=== PATIENT | female | born 1980 | race Caucasian/White ===

== ENCOUNTER 2016-08-20 07:08 | Emergency (ER) | payer SELFPAY ==
--- NOTE | 2016-08-20 07:30 | ED Physician Chart ---
Chief Complaint/HPI - Patient Information Date Seen:: 08/20/16 Time Seen:: 07:29 Chief Complaint:: HEROIN WITHDRAWL History of Present Illness:: This 35-year-old female was released from police custody because she had been vomiting. She was undergoing heroin withdrawal at the present time her main symptoms are nausea and vomiting. The last time she used heroin 1 was 2 days ago. Denies any abdominal pain or diarrhea. She is positive for both hepatitis B and hepatitis C. He denies any other medical problems. No back pain. Allergies:: Allergies Allergy/AdvReac Type Severity Reaction Status Date / Time No Known Allergies Allergy Verified 08/20/16 07:28 Review of Systems - Review of Systems General/Constitutional: No fever, No chills, No weight loss, No weakness, No edema Skin: No skin lesions, No bruising Head: No headache, No light-headedness Eyes: No loss of vision, No diplopia ENT: No earache, No sore throat Neck: No neck pain, No swelling, No mass noted GI: Nausea, Vomiting, No diarrhea, No pain, No hematemesis G/U: No dysuria, No frequency Chip Mixer: No abnormal vaginal bleed Musculoskeletal: No bone or joint pain, No back pain, No muscle pain Endocrine: No polyuria, No polydipsia Hematopoietic: No bruising, No lymphadenopathy Allergic/Immuno: No urticaria, No angioedema Neurological: No syncope, No focal symptoms, No weakness, No paresthesia, No seizure, No confusion Past Medical History - Past Medical History Past Medical History: Other (patient denies positivity for HIV. Patient positive for both hep B and C.) Social History: Smoker (will not answer to how much alcohol she consumes.), Illicit Drug Use, Other (lives with friends) Family Medical History - Family Member Mother History Unknown: Yes Physical Exam - Physical Examination General/Constitutional: Well-developed, well-nourished, No distress Other Gen/Cons comments:: Patient wanting to sleep and not answer questions. Responded to light being shown in her eyes. Head: Atraumatic Eyes: Lids, conjuctiva normal, PERRL Other Eyes comments:: Uncooperative with the ON exam. Other Skin comments:: Her skin is warm and dry and she has a mild case of acne involving her face. ENMT: External ears, nose nl, Nasal exam nl, Lips, teeth, gums nl, Oropharynx nl , Tonsils nl Neck: Nontender, Full ROM w/o pain, No JVD, No nuchal rigidity, No bruit, No mass Respiratory: Nl effort/Exclusion, Clear to Auscultation, No Wheeze/Rhonchi/Rales Cardio Vascular: No murmur, gallop, rubs, NL S1 S2 Other Cardio Vascular comments:: Has adequate pulses in all 4 extremities. GI: No tenderness/rebounding/guarding, No organomegaly, No hernia, Normal BS's, Nondistended, No mass/bruits, No McBurney tenderness Other GI comments:: Rectal exam deferred at my discretion. Extremities: No tenderness or effusion, Full ROM, normal strength in all extremities, No edema Neuro/Psych: Normal sensory exam, Normal motor strength, No focal deficits Misc: Normal back, No paraspinal tenderness Labs/Radiology/EKG Results - Lab Results Results: Laboratory Tests 08/20/16 08/20/16 07:45 07:45 WBC 9.2 RBC 4.84 Hgb 14.0 Hct 41.3 MCV 85.2 MCH 28.9 MCHC Differential 33.9 RDW 12.3 Plt Count 290 MPV 7.7 Neutrophils % 77.2 Lymphocytes % 18.1 L Monocytes % 3.6 Eosinophils % 0.2 Basophils % 0.9 Sodium 135 L Potassium 3.5 Chloride 102 Carbon Dioxide 26.3 Anion Gap 10.2 BUN 15 Creatinine 0.6 Est GFR ( Amer) > 60.0 Est GFR (Non-Af Amer) > 60.0 BUN/Creatinine Ratio 25.0 Glucose 93 Calcium 9.9 Total Bilirubin 0.6 AST 41 H ALT 53 H Alkaline Phosphatase 71 Total Protein 7.7 Albumin 4.2 Globulin 3.5 Albumin/Globulin Ratio 1.2 Amylase 25 L Lipase 23 The CBC is unremarkable with no leukocytosis or evidence of anemia. Count is within the normal range. He shouldn't has normal electrolytes except for a minimally reduced serum sodium of 135. Patient has mild elevation of her AST and ALT consistent with chronic hepatitis. Both the amylase and the lipase were within the normal range. Still awaiting HCGPatient was unable to provide a urine specimen so a serum beta hCG was sending came back negative for . Assessment - Assessment General Assessment: Up-to-date. He should continue his to sleep most of the time. She had a recurrent episode of vomiting and is being treated with Reglan 10 mg IV push. CASE SUMMARY: this 35-year-old female was released from police custody and brought to the emergency department for evaluation and treatment of nausea and vomiting. The patient is addicted to heroin and had her last Pharaoh two days ago. In the past 12 hours the patient has had onset of nausea and vomiting with no associated abdominal pain or diarrhea. Laboratory studies show the patient had a normal CBC with no LEUKOCYTOSIS or anemia. the patient had mild hyponatremia. Her symptoms were addressed with 4 L of normal saline, 4 mg of IV Zofran, and 10 mg of IV rate. Patient states that she feels much better and is being discharged to take the bus home. She is being discharged with a prescription for Zofran to be used one every six hours as needed for vomiting. She is also being discharged with a prescription for clonidine 0.1 mg to be taken TID as needed for withdrawal symptoms. MDM DDX FOR ACUTE NAUSEA AND VOMTING: NOT as HCG was negative. NOT Sepsis based on vital signs and lab studies. NOT acute pancreatitis based on both normal lipase and amylase levels. ED Septic Shock - . Is Septic Shock (SBP<90, OR Lactate>4 mmol\L) present?: No Reassessment (Disposition) - Reassessment Reassessment Condition:: Improved - Diagnosis Diagnosis:: Nausea and vomiting do to HEROIN WITHDRAWL, DEHYDRATION, History of hepatitis B and C. - Aftercare/Follow up Instructions Aftercare/Follow-Up Instructions:: Counseled pt regarding lab results/diagnosis & need follow up Medication Prescribed:: CLONIDINE 0.1 mg to be taken tid as needed for heroin withdrawl symptoms. ZOFRAN 8 mg to be taken as needed for any further nausea or vomiting. Advised to return to the emergency for the return or a worsening of symptoms. ED Discharge Plan - Patient Disposition Prescriptions: Clonidine HCl [Catapres] 0.1 mg PO TID PRN #0 tablet PRN Reason: withdrawal symptoms Ondansetron [Zofran Odt*] 8 mg PO Q6H PRN #0 odt PRN Reason: nausea and vomiting Instructions: Heroin Abuse and Withdrawal Accepting Physician: Mart Andres [Active] - 1-3 Days
[2016-08-20] MEDS ORDERED: Sodium Chloride 0.9% 2,000 ML IV ONE ×2 (07:41→11:46)
[2016-08-20 07:55] LABS: % BASOPHILS 0.9 % (0.0-2.0); % EOSINOPHILS 0.2 % (0.0-5.0); % LYMPHOCYTES 18.1 % (20.0-50.0); % MONOCYTES 3.6 % (2.0-10.0); % NEUTROPHILS 77.2 % (40.0-80.0); HEMATOCRIT 41.3 % (35.0-45.0); MEAN CELL VOLUME 85.2 fl (81-100); MEAN CORPUSCULAR HEMOGLOBIN 28.9 pg (27.0-31.0); MEAN CORPUSCULAR HGB CONC 33.9 pg (28.0-36.0); MEAN PLATELET VOLUME 7.7 fl; NEUTROPHILE ABSOLUTE 7.1 Th/cmm (1.8-8.0); PLATELET COUNT 290 Th/cmm (150-400); RED BLOOD COUNT 4.84 Mil/cmm (3.80-5.10); RED CELL DISTRIBUTION WIDTH 12.3 % (11.5-20.0); WHITE BLOOD COUNT 9.2 Th/cmm (4.8-10.8)
[2016-08-20 08:12] LABS: ALB/GLOB RATIO 1.2 (1.0-1.8); ALKALINE PHOSPHATASE 71 U/L (34-104); AMYLASE SERUM 25 U/L (29-103); ANION GAP 10.2 (7.0-16.0); BILIRUBIN,TOTAL 0.6 mg/dL (0.3-1.0); BUN - UREA NITROGEN 15 mg/dL (7-25); CALCIUM SERUM 9.9 mg/dL (8.6-10.3); CARBON DIOXIDE 26.3 mEq/L (21.0-31.0); CHLORIDE 102 mEq/L (98-107); CREATININE - SERUM 0.6 mg/dL (0.6-1.2); GLUCOSE 93 mg/dL (70-105); LIPASE 23 U/L (11-82); POTASSIUM SERUM 3.5 mEq/L (3.5-5.1); SGOT 41 U/L (13-39); SGPT/ALT 53 U/L (7-52); SODIUM SERUM 135 mEq/L (136-145)
[2016-08-20] MEDS ORDERED: Metoclopramide 5 mg/mL 2mL Vial IVP STA (11:35)
[2016-08-20] MEDS ORDERED: Metoclopramide 5 mg/mL 2mL Vial ONE (11:35)
== END 2016-08-20 13:10 | disposition home or self-care (01) ==
LOC: ER 07:08
DX: R11.2 Nausea with vomiting, unspecified (principal); E86.0 Dehydration; F11.23 Opioid dependence with withdrawal; Z86.19 Personal history of other infectious and parasitic diseases; F17.200 Nicotine dependence, unspecified, uncomplicated
CPT/HCPCS: 99284; 96374; 96375; 36415; 85025; 82150; 81025; 83690; 80053; J2405; J2765; J7030; Z7502; Z7610